=== PATIENT | male | born 1975 | race Caucasian/White ===

== ENCOUNTER 2022-11-13 15:07 | Inpatient (IN) | payer OTHER ==
[2022-11-13] MEDS ORDERED: Sodium Chloride 0.9% 1,000 ML IV ONE (15:19)
[2022-11-13 16:14] LABS: ESTIMATED GFR 105 mL/min (>60)
[2022-11-13] MEDS ORDERED: Ondansetron 4 MG Tab.DIS PO PRN (18:00)
[2022-11-13] MEDS ORDERED: Insulin Regular in 0.9 % NACL 100 ML IV SCH (18:15)
[2022-11-13] MEDS: Sodium Chloride 0.9% 1,000 ML IV SCH ×2 (18:49→23:35)
[2022-11-13 20:33] LABS: ESTIMATED GFR 108 mL/min (>60)
[2022-11-14] MEDS: Acetaminophen 325 MG Tab PO PRN ×2 (01:05→17:54)
[2022-11-14] MEDS ORDERED: Pantoprazole 40 MG Tab.CR PO ONE (04:00)
[2022-11-14] MEDS: Sodium Chloride 0.9% 1,000 ML IV SCH ×5 (04:18→21:22)
[2022-11-14] MEDS: HYDROmorphone 0.5 MG/0.5 ML Syringe IVPUSH PRN ×5 (06:10→21:21)
[2022-11-14] MEDS ORDERED: Pantoprazole 40 MG Tab.CR PO SCH (07:00)
[2022-11-14 07:19] LABS: ESTIMATED GFR 113 mL/min (>60)
[2022-11-14] MEDS: Enoxaparin 40 MG/0.4 ML Syringe SUBCUT SCH (08:26)
[2022-11-14] MEDS: metFORMIN 500 MG Tab PO SCH (08:26)
[2022-11-14] MEDS: hydrALAZINE 25 MG Tab PO SCH ×2 (09:28→17:47)
[2022-11-14] MEDS: Losartan 100 MG Tab PO SCH (09:28)
[2022-11-14] MEDS: Hydrochlorothiazide 25 MG Tab PO SCH (09:28)
[2022-11-14] MEDS: Insulin Glargine,Human Rec. Analog 100 Units/ML 3 ML Pen SUBCUT SCH (09:29)
[2022-11-14] MEDS: Potassium Chloride 20 MEQ Tab.ER PO SCH (10:18)
[2022-11-14] MEDS: Insulin Lispro 100 Unit/ML 3 ML KwikPen SUBCUT SCH ×3 (11:50→21:39)
[2022-11-14] MEDS ORDERED: Furosemide 20 MG/2 ML VIAL IVPUSH ONE (12:15)
[2022-11-14 17:26] LABS: HEMOGLOBIN A1C 11.2 %
[2022-11-15] MEDS: hydrALAZINE 25 MG Tab PO SCH ×3 (00:19→17:22)
[2022-11-15] MEDS: HYDROmorphone 0.5 MG/0.5 ML Syringe IVPUSH PRN (03:43)
[2022-11-15] MEDS: Sodium Chloride 0.9% 1,000 ML IV SCH ×3 (03:44→17:21)
[2022-11-15] MEDS: Pantoprazole 40 MG Tab.CR PO SCH (06:19)
[2022-11-15] MEDS: Insulin Lispro 100 Unit/ML 3 ML KwikPen SUBCUT SCH ×4 (07:48→20:51)
[2022-11-15] MEDS: Potassium Chloride 20 MEQ Tab.ER PO SCH (08:43)
[2022-11-15] MEDS: Enoxaparin 40 MG/0.4 ML Syringe SUBCUT SCH (08:43)
[2022-11-15] MEDS: Losartan 100 MG Tab PO SCH (08:43)
[2022-11-15] MEDS: Hydrochlorothiazide 25 MG Tab PO SCH (08:44)
[2022-11-15] MEDS: metFORMIN 500 MG Tab PO SCH (08:44)
[2022-11-15] MEDS: Insulin Glargine,Human Rec. Analog 100 Units/ML 3 ML Pen SUBCUT SCH (08:45)
[2022-11-15] MEDS: Acetaminophen 325 MG Tab PO PRN ×2 (11:46→17:22)
[2022-11-15] MEDS ORDERED: Insulin Glargine,Human Rec. Analog 100 Units/ML 3 ML Pen SUBCUT STA (14:15)
[2022-11-16] MEDS: hydrALAZINE 25 MG Tab PO SCH ×2 (00:18→09:01)
[2022-11-16] MEDS: Sodium Chloride 0.9% 1,000 ML IV SCH ×2 (00:18→07:41)
[2022-11-16] MEDS: Acetaminophen 325 MG Tab PO PRN ×2 (00:43→07:41)
[2022-11-16] MEDS: Pantoprazole 40 MG Tab.CR PO SCH (06:09)
[2022-11-16] MEDS: Insulin Lispro 100 Unit/ML 3 ML KwikPen SUBCUT SCH ×2 (07:43→11:38)
[2022-11-16] MEDS: Insulin Glargine,Human Rec. Analog 100 Units/ML 3 ML Pen SUBCUT SCH (08:59)
[2022-11-16] MEDS: Enoxaparin 40 MG/0.4 ML Syringe SUBCUT SCH (09:01)
[2022-11-16] MEDS: Hydrochlorothiazide 25 MG Tab PO SCH (09:01)
[2022-11-16] MEDS: Potassium Chloride 20 MEQ Tab.ER PO SCH (09:01)
[2022-11-16] MEDS: Losartan 100 MG Tab PO SCH (09:01)
[2022-11-16] MEDS: metFORMIN 500 MG Tab PO SCH (09:01)
== END 2022-11-16 12:55 | disposition home or self-care (01) | DRG 438 ==
LOC: JD.ED 15:07 → JD.ICU 15:46 → JD.MS 11-14 19:44
PROVIDERS: ADMIT Hospitalist; ATTEND Hospitalist
DX: K85.90 Acute pancreatitis without necrosis or infection, unspecified (principal); E11.10 Type 2 diabetes mellitus with ketoacidosis without coma; E66.9 Obesity, unspecified; E78.5 Hyperlipidemia, unspecified; I10 Essential (primary) hypertension; G47.33 Obstructive sleep apnea (adult) (pediatric); Z79.899 Other long term (current) drug therapy; Z79.4 Long term (current) use of insulin; Z79.82 Long term (current) use of aspirin; Z68.37 Body mass index [BMI] 37.0-37.9, adult; Z88.8 Allergy status to other drugs, medicaments and biological substances
CPT/HCPCS: 36415; 74150; 74150-26; 76705; 76705-26; 80048; 80053; 82009; 82947; 83036; 83690; 83735; 84484; 85007; 85025; 85027; A9270-GY; J1170; J1650; J1815; J1815-GY; J1940; J7030